=== PATIENT | female | born 1960 | race Caucasian/White ===

== ENCOUNTER → 2017-08-21 | Outpatient (CLI) | payer OTHER ==
[2017-08-25 10:56] LABS: HPV Genotype 16 Not Detected (NOTDET); HPV Genotype 18 Detected (NOTDET)
[2017-09-11 13:37] LABS: HPV High Risk Other Not Detected (NOTDET)
== END | disposition home or self-care (01) ==
LOC: LAB 18:29
PROVIDERS: Physician Assistant
DX: Z01.419 Encounter for gynecological examination (general) (routine) without abnormal findings (principal)
CPT/HCPCS: 87624; G0145

== ENCOUNTER → 2017-10-15 | Outpatient (CLI) | payer OTHER | LOC: LAB SHORT 12:32 → PLD 12:32 | DX: D26.0 Other benign neoplasm of cervix uteri (principal); R10.2 Pelvic and perineal pain; R87.89 Other abnormal findings in specimens from female genital organs | CPT/HCPCS: 88305 ==

== ENCOUNTER 2017-12-05 09:26 | Emergency (ER) | payer OTHER ==
[~2017-12-05] VITALS: Ht 165.1 cm; Wt 98.9 kg
== END 2017-12-05 10:33 | disposition home or self-care (01) ==
LOC: ER 09:26
DX: M25.562 Pain in left knee (principal); I10 Essential (primary) hypertension; E11.9 Type 2 diabetes mellitus without complications
CPT/HCPCS: 73564; 96372; 99283; J1885